=== PATIENT | male | born 2000 | race African-American/Black ===

== ENCOUNTER 2018-02-08 16:53 | Emergency (ER) | payer OTHER ==
[2018-02-08] MEDS ORDERED: fentaNYL 100 MCG/2 ML VIAL IVP STA (16:57)
--- NOTE | 2018-02-08 17:00 | ED Physician Documentation ---
PD HPI UPPER EXT INJURY - Stated complaint Stated Complaint: SHOULDER PX - History obtained from History obtained from: Patient - History of Present Illness Location: Left, Shoulder Type of injury: Twist Where injury occurred: Other (Basketball court.) Timing - onset: How many minutes ago (30) Associated symptoms: No: Weakness, Numbness - Additonal information Additional information: The patient is a 17-year-old male who was playing basketball, reaching up to block a shot when his left shoulder dislocated. The incident occurred about 1/2-hour prior to arrival. He has a past history of right anterior shoulder dislocation. He is right-hand dominant. Review of Systems Cardiac: denies: Chest pain / pressure Respiratory: denies: Dyspnea, Cough GI: denies: Nausea, Vomiting Musculoskeletal: reports: Joint pain (left shoulder). denies: Neck pain, Back pain Neurologic: denies: Focal weakness, Numbness PD PAST MEDICAL HISTORY - Past Medical History Cardiovascular: None Respiratory: None - Present Medications Home Medications: Ambulatory Orders Medication Instructions Recorded Confirmed Ibuprofen 800 mg PO TID PRN #30 tablet 02/08/18 - Allergies Allergies/Adverse Reactions: Allergies Allergy/AdvReac Type Severity Reaction Status Date / Time No Known Drug Allergies Allergy Verified 02/08/18 16:58 PD ED PE NORMAL - Vitals Vital signs reviewed: Yes (normal) - General General: Alert and oriented X 3, Well developed/nourished - HEENT HEENT: Atraumatic - Neck Neck: No bony TTP - Cardiac Cardiac: RRR - Respiratory Respiratory: No respiratory distress, Clear bilaterally - Back Back: No spinal TTP - Derm Derm: No rash - Extremities Extremities: Other (Deformity of the left shoulder, consistent with anterior shoulder dislocation, with bulging anteriorly and a dimple under the acromion process.) - Neuro Neuro: Alert and oriented X 3, No motor deficit, No sensory deficit, Other (No sensory deficit detected.) Results - Vitals Vitals: Vital Signs - 24 hr 02/08/18 02/08/18 16:53 18:09 Temperature 36.5 C 36.6 C Heart Rate 98 88 Respiratory 18 18 Rate Blood Pressure 166/112 H 163/88 H O2 Saturation 98 98 Oxygen O2 Source Room air - Rads (name of study) left shoulder Radiology: Prelim report reviewed, EMP read contemporaneously, See rad report (Normal glenohumeral joint alignment. No fracture identified.) Procedures - Reduction Body part reduced: Left, Shoulder Fracture or dislocation: Dislocation Anesthesia: Fentanyl (100 mcg) Shoulder reduction technique: Scapular manipulation Reduction aftercare: NV intact, Xray confirms reduction, Sling PD MEDICAL DECISION MAKING - ED course Complexity details: reviewed results, re-evaluated patient, considered differential, d/w patient ED course: The patient's presentation is significant for a left anterior shoulder dislocation. The dislocation was obvious on examination upon the patient's arrival. Treatment in the emergency department included administration of fentanyl 100 mcg IV, with subsequent reduction by shoulder manipulation and slight traction. The patient tolerated the procedure well. Post reduction x-rays reveal good shoulder alignment, with no evidence of fracture identified. A shoulder sling was applied. I discussed with him the expected course of injury, symptomatic treatment and outpatient follow-up, as well as potentially worrisome signs or symptoms that should prompt reevaluation in the emergency department. Departure - Departure Disposition: 01 Home, Self Care Clinical Impression: Closed anterior dislocation of left shoulder Qualifiers: Encounter type: initial encounter Qualified Code(s): S43.015A - Anterior dislocation of left humerus, initial encounter Condition: Stable Instructions: ED Dislocation Shoulder Redu Follow-Up: TO[facility] Wilkinson [Provider Group] Prescriptions: Ibuprofen 800 mg PO TID PRN #30 tablet PRN Reason: Pain Comments: Continue to use the arm sling for the next 2 weeks. You can apply ice pack on your left shoulder intermittently for the next 2 or 3 days. You can use ibuprofen as prescribed if needed for pain. Avoid raising your left arm above your head for the next 2 weeks. Follow-up with your primary physician within 1-2 weeks. Call to schedule appointment. Return to the emergency department if you develop recurrent shoulder dislocation, or otherwise worsening symptoms. Forms: Activity restrictions Discharge Date/Time: 02/08/18 18:11
--- NOTE | 2018-02-08 17:40 | XRAY Report ---
Reason: Reduced anterior shoulder dislocation Procedure Date: 02/08/2018 Accession Number: [id number] / [id number] Procedure: XR - Shoulder 3 View LT CPT Code: FULL RESULT: EXAM: LEFT SHOULDER RADIOGRAPHY EXAM DATE: 02/08/2018 05:33 PM. CLINICAL HISTORY: Left shoulder pain. COMPARISON: None. TECHNIQUE: 3 views. FINDINGS: Bones: Normal. No fracture or bone lesion. Joints: The glenohumeral and acromioclavicular joints are normal. Soft tissues: The visualized hemithorax is unremarkable. No soft tissue swelling. IMPRESSION: Normal glenohumeral joint alignment. No fracture demonstrated. [facility]
[2018-02-08 18:11] VITALS: BP 163/88
== END 2018-02-08 18:11 | disposition home or self-care (01) ==
LOC: ED 16:53
DX: S43.015A Anterior dislocation of left humerus, initial encounter (principal); X50.1XXA Overexertion from prolonged static or awkward postures, initial encounter; Y93.67 Activity, basketball; Y92.310 Basketball court as the place of occurrence of the external cause
CPT/HCPCS: 23650; 99283

== ENCOUNTER 2018-11-09 10:24 | Emergency (ER) | payer SELFPAY ==
[2018-11-09 10:36] VITALS: BP 124/86
--- NOTE | 2018-11-09 10:37 | ED Physician Documentation ---
History of Present Illness - Stated complaint Stated Complaint: MALE - Chief complaint Chief Complaint: General - History obtained from History obtained from: Patient - Additonal information Additional information: Patient is a previously healthy 17-year-old male presenting with his significant other with concern for positive gonorrhea result on her vaginal exam performed in this ED yesterday. Patient himself denies fever, nausea, vomiting, abdominal pain, penile changes including pain or discharge, urinary changes, stool changes, or testicular complaints. No rash. No other improving or worsening factors noted. Review of Systems Constitutional: denies: Fever GI: denies: Abdominal Pain, Nausea, Vomiting, Diarrhea : denies: Dysuria Skin: denies: Rash PD PAST MEDICAL HISTORY - Past Medical History Past Medical History: No Cardiovascular: None Respiratory: None - Past Surgical History Past Surgical History: No - Present Medications Home Medications: Ambulatory Orders Medication Instructions Recorded Confirmed Ibuprofen 800 mg PO TID PRN #30 tablet 02/08/18 - Allergies Allergies/Adverse Reactions: Allergies Allergy/AdvReac Type Severity Reaction Status Date / Time No Known Drug Allergies Allergy Verified 11/09/18 10:36 - Social History Does the pt smoke?: No Smoking Status: Never smoker Does the pt drink ETOH?: No Does the pt have substance abuse?: No - Immunizations Immunizations are current?: Yes - POLST Patient has POLST: No PD ED PE NORMAL - Vitals Vital signs reviewed: Yes - General General: Alert and oriented X 3, No acute distress, Well developed/nourished - HEENT HEENT: Atraumatic, Moist mucous membranes - Neck Neck: Supple, no meningeal sign - Respiratory Respiratory: No respiratory distress - Abdomen Abdomen: Soft, Non tender, Non distended - Male Male : Deferred - Derm Derm: Normal color, Warm and dry, No rash - Extremities Extremities: No deformity, No tenderness to palpate - Neuro Neuro: Alert and oriented X 3, No motor deficit, No sensory deficit - Psych Psych: Normal mood, Normal affect Results - Vitals Vitals: Vital Signs - 24 hr 11/09/18 10:35 Temperature 36.8 C Heart Rate 71 Respiratory 18 Rate Blood Pressure 124/86 H O2 Saturation 100 Oxygen O2 Source Room air PD MEDICAL DECISION MAKING - ED course Complexity details: considered differential, d/w patient ED course: Patient presenting with known exposure to gonorrhea. Patient himself has no complaints and is otherwise asymptomatic. At this time, do not feel patient requires invasive testing or further work-up. Discussed treatment with antibiotics in the ED, as well as safe sex practices, return precautions, and appropriate follow-up. Patient voiced understanding and is comfortable with discharge plan. Departure - Departure Disposition: 01 Home, Self Care Clinical Impression: STD exposure Condition: Good Instructions: ED Gonorrhea Male Follow-Up: your,doctor [Other] - Within 3 Days Comments: Please refrain from sexual intercourse over the next several days in order for antibiotic's to clear infection. Please practice safe sex practices thereafter. Follow-up with primary care physician in next 2 to 3 days and return to ED sooner if experience worsening symptoms or have other concerns.
[2018-11-09] MEDS ORDERED: LIDOCAINE 1% 2 ML VIAL MC ONE (10:43)
[2018-11-09] MEDS ORDERED: metroNIDAZOLE 250 MG TABLET PO STA (10:43)
[2018-11-09] MEDS ORDERED: cefTRIAXone 250 MG VIAL IM STA (10:43)
[2018-11-09] MEDS ORDERED: AZITHROMYCIN 250 MG TABLET PO STA (10:43)
== END 2018-11-09 11:14 | disposition home or self-care (01) ==
LOC: ED 10:24
DX: Z20.2 Contact with and (suspected) exposure to infections with a predominantly sexual mode of transmission (principal)
CPT/HCPCS: 96372; 99282; 99283; A9270

== ENCOUNTER 2019-10-15 20:40 | Outpatient (CLI) | payer MEDICAID | END 2019-10-15 23:59 | disposition EMS.NT | LOC: EMS 20:40 | PROVIDERS: ATTEND Surgery | DX: M25.511 Pain in right shoulder (principal); W50.0XXA Accidental hit or strike by another person, initial encounter; Y93.71 Activity, boxing; Y92.007 Garden or yard of unspecified non-institutional (private) residence as the place of occurrence of the external cause ==

== ENCOUNTER 2019-10-15 21:13 | Emergency (ER) | payer MEDICAID ==
--- NOTE | 2019-10-15 21:17 | ED Physician Documentation ---
History of Present Illness - Stated complaint Stated Complaint: SHOULDER PX - History obtained from History obtained from: Patient (the patient is a 18 Y/O right hand dominant male with a history of bilateral recurrent shoulder dislocations. he was throwing a football tonight and dislocated his right shoulder. denies any other complaints.) Review of Systems Constitutional: reports: Reviewed and negative Eyes: reports: Reviewed and negative Ears: reports: Reviewed and negative Nose: reports: Reviewed and negative Throat: reports: Reviewed and negative Cardiac: reports: Reviewed and negative Respiratory: reports: Reviewed and negative GI: reports: Reviewed and negative : reports: Reviewed and negative Skin: reports: Reviewed and negative Musculoskeletal: reports: Other (right shoulder dislocation) Neurologic: reports: Reviewed and negative Psychiatric: reports: Reviewed and negative Endocrine: reports: Reviewed and negative Immunocompromised: reports: Reviewed and negative PD PAST MEDICAL HISTORY - Past Medical History Cardiovascular: None Respiratory: None - Past Surgical History Past Surgical History: No - Present Medications Home Medications: Ambulatory Orders Medication Instructions Recorded Confirmed Ibuprofen 800 mg PO TID PRN #30 tablet 02/08/18 Hydrocodone/Acetaminophen [[place] 1 each PO Q8HR PRN #7 tablet 10/15/19 5-325 Tablet] - Allergies Allergies/Adverse Reactions: Allergies Allergy/AdvReac Type Severity Reaction Status Date / Time No Known Drug Allergies Allergy Verified 10/15/19 21:18 - Social History Does the pt smoke?: No Smoking Status: Never smoker Does the pt drink ETOH?: No Does the pt have substance abuse?: No - Immunizations Immunizations are current?: Yes - POLST Patient has POLST: No PD ED PE NORMAL - Vitals Vital signs reviewed: Yes - General General: Alert and oriented X 3, No acute distress - HEENT HEENT: PERRL - Neck Neck: Supple, no meningeal sign - Cardiac Cardiac: RRR, No murmur - Respiratory Respiratory: Clear bilaterally - Abdomen Abdomen: Normal bowel sounds, Soft, Non tender, Non distended - Derm Derm: Warm and dry - Extremities Extremities: Other (right shoulder with positive sulcus sign, sensation intact over lateral deltoid. radian, median, ulnar motor and sensory exam intact. [employer] strength 5 out of 5) - Neuro Neuro: Alert and oriented X 3 - Psych Psych: Normal mood, Normal affect Results - Vitals Vitals: Vital Signs - 24 hr 10/15/19 10/15/1920 21:18 22:00 22:14 Temperature 36.5 C Heart Rate 70 72 64 Respiratory 16 12 18 Rate Blood Pressure 160/100 H O2 Saturation 99 97 98 Oxygen O2 Source Room air Procedures - Reduction Body part reduced: Right, Shoulder Fracture or dislocation: Dislocation Anesthesia: Fentanyl Shoulder reduction technique: Traction - counter tract, Other (Postreduction x- ray confirms successful reduction. Right shoulder and upper extremity placed in sling. Post reduction shows him to be neurovascularly intact compartments soft radial pulses are 2+ and symmetric sensations intact over the lateral deltoid.Radian, median, ulnar motor and sensory nml.) PD MEDICAL DECISION MAKING - ED course Complexity details: reviewed results, re-evaluated patient, considered differential (Right shoulder dislocation, successfully reduced with manipulation patient tolerated the procedure well placed in sling and take ibuprofen as needed and ice follow-up with Ortho as needed.), d/w patient Departure - Departure Disposition: 01 Home, Self Care Clinical Impression: Recurrent dislocation, right shoulder Condition: Stable Instructions: ED Dislocation Shoulder Redu Follow-Up: [facility] [Provider Group] Prescriptions: Hydrocodone/Acetaminophen [[place] 5-325 Tablet] 1 each PO Q8HR PRN #7 tablet PRN Reason: Pain Comments: Keep arm in sling for the next 24 hours, call orthopedic surgery to schedule follow-up. Ice several times daily take ibuprofen as needed for pain you may also take [place] as prescribed as needed for severe pain.
[2019-10-15] MEDS ORDERED: fentaNYL 100 MCG/2 ML VIAL IVP STA (21:45)
[2019-10-15] MEDS ORDERED: MIDAZOLAM 2 MG/2 ML VIAL IVP STA (21:53)
[2019-10-15 22:52] VITALS: BP 149/104
--- NOTE | 2019-10-16 08:14 | XRAY Report ---
PROCEDURE: Shoulder 3 View RT INDICATIONS: dislocation TECHNIQUE: 3 views of the shoulder were acquired. COMPARISON: None. FINDINGS: Bones: Humeral head is located anterior inferior to the glenohumeral joint. No definitively visualize d fractures identified. No suspicious bony lesions. Visualized ribs appear intact. Soft tissues: No suspicious soft tissue calcifications. IMPRESSION: Anterior glenohumeral dislocation without visualized fracture. Reviewed by: Kristi Dale MD on 10/16/2019 8:12 AM PDT Approved by: Kristi Dale MD on 10/16/2019 8:12 AM PDT Station ID: [id number]
--- NOTE | 2019-10-16 08:14 | XRAY Report ---
PROCEDURE: Shoulder 3 View RT INDICATIONS: post reduction TECHNIQUE: 3 views of the shoulder were acquired. COMPARISON: None. FINDINGS: Bones: There is been interval reduction of previous anterior dislocation with good anatomic alignmen t. No fractures or dislocations. No suspicious bony lesions. Visualized ribs appear intact. Soft tissues: No suspicious soft tissue calcifications. IMPRESSION: Interval reduction with good anatomic alignment. No visualized acute fracture or disloca tion. However, occult injury cannot be excluded. Recommend short interval imaging follow-up in 7-10 d ays as clinically indicated for additional evaluation. Reviewed by: Kristi Dale MD on 10/16/2019 8:13 AM PDT Approved by: Kristi Dale MD on 10/16/2019 8:13 AM PDT Station ID: [id number]
== END 2019-10-15 22:47 | disposition home or self-care (01) ==
LOC: ED 21:13
DX: M24.411 Recurrent dislocation, right shoulder (principal); X50.9XXA Other and unspecified overexertion or strenuous movements or postures, initial encounter; Y93.61 Activity, american tackle football
CPT/HCPCS: 99283; 99285

== ENCOUNTER 2019-12-04 13:22 | Outpatient (CLI) | payer MEDICAID | END 2019-12-04 13:23 | disposition home or self-care (01) | LOC: COV 13:22 | PROVIDERS: ATTEND Family Medicine | DX: R50.9 Fever, unspecified (principal); J02.9 Acute pharyngitis, unspecified; Z20.828 Contact with and (suspected) exposure to other viral communicable diseases ==

== ENCOUNTER 2020-06-17 16:43 | Outpatient (CLI) | payer MEDICAID | END 2020-06-17 16:44 | disposition home or self-care (01) | LOC: COV 16:43 | PROVIDERS: ATTEND Family Medicine | DX: R50.9 Fever, unspecified (principal); Z20.822 Contact with and (suspected) exposure to COVID-19 ==